=== PATIENT | male | born 1990 | race Caucasian/White ===

== ENCOUNTER 2017-01-11 08:01 | Day surgery (SDC) | payer BC ==
[~2017-01-11 08:01] MED LIST: Bupivacaine 0.5%/EPINEPHrine 1:200,000 30 ML SDV ONE; Dexamethasone 4 MG/ML SDV ONE; EPINEPHrine 1:10,000 1 MG/10 ML Syringe ONE; Ketorolac 30 MG/ML SDV ONE; Lactated Ringers 1,000 ML IV SCH; Lactated Ringers 1,000 ML ONE; Midazolam 1 MG/ML 2 ML SDV ONE; Propofol 200 MG/20 ML SDV ONE; Sodium Chloride 0.9% 5 ML Syringe FLUSH PRN; Water For Injection,Bacteriostatic 30 ML MDV ONE; ceFAZolin 1 GM Vial ONE; fentaNYL 250 MCG/5 ML SDV ONE
[2017-01-11] MEDS ORDERED: Ondansetron 4 MG/2 ML SDV ONE (09:06)
[2017-01-11] MEDS ORDERED: fentaNYL 250 MCG/5 ML SDV ONE (09:06)
[2017-01-11] MEDS ORDERED: Propofol 200 MG/20 ML SDV ONE (09:06)
[2017-01-11] MEDS ORDERED: Glycopyrrolate 0.2 MG/ML 5 ML MDV ONE (09:06)
[2017-01-11] MEDS ORDERED: Dexamethasone 4 MG/ML SDV ONE (09:06)
[2017-01-11] MEDS ORDERED: Succinylcholine 200 MG/10 ML MDV ONE (09:06)
[2017-01-11] MEDS ORDERED: Midazolam 1 MG/ML 2 ML SDV ONE (09:06)
[2017-01-11] MEDS ORDERED: Rocuronium 50 MG/5 ML Vial ONE (09:06)
[2017-01-11] MEDS ORDERED: ceFAZolin 1 GM Vial ONE ×2 (09:06→09:58)
[2017-01-11] MEDS ORDERED: fentaNYL 100 MCG/2 ML SDV ONE ×3 (09:06→11:39)
[2017-01-11] MEDS ORDERED: Neostigmine Methylsulfate 10 MG/10 ML MDV ONE (09:06)
[2017-01-11] MEDS ORDERED: Bupivacaine 0.5%/EPINEPHrine 1:200,000 30 ML SDV INFILT ONE ×2 (09:57)
[2017-01-11] MEDS ORDERED: Water For Injection, Sterile 20 ML SDV ONE (09:59)
[2017-01-11] MEDS ORDERED: EPINEPHrine 1:10,000 1 MG/10 ML Syringe ONE (10:00)
--- NOTE | 2017-01-11 11:58 | PCM.OPNOTE ---
[id number] cholecystectomy Findings: a hugely distended gallbladder was seen. The gallbladder contains thick pus and also had a stone that was treated. This did not show up on the ultrasound preoperatively. Pre Op Diagnosis: Chronic cholecystitis, sludge within the gallbladder, Post-Op Diagnosis: As above. Stone present within the gallbladder. Gallbladder filled with creamy yellow material. Empyema with thickened, adherent wall. Primary Surgeon: Jett Payton Surgical Drain/Tube Type: Jason Mayorga Round Drain Complications: None Condition: Good Free Text/Narrative:: INFORMED CONSENT: This patient is here today because of chronic cholecystitis and sludge in his gall bladder. . The operative procedure is laparoscopic cholecystectomy. The operative procedure and risks were discussed including all possible complications including infection, pain, bleeding, bile duct injury, internal organ injury, conversion to open procedure, reoperation, PE, . Anesthetic complications were handled by [employer]. The patient understands well and wishes to proceed. OPERATION PERFORMED: Laparoscopic cholecystectomy. Drainage of empyema. Removal of gall bladder stone. PROCEDURE: The patient was kept in the supine position and a satisfactory general anesthetic was administered via endotracheal tube. The abdomen was thoroughly prepped and draped in the usual fashion. The supraumbilical fold was infiltrated with 1 mL of Marcaine 0.5% and a curvilinear incision was made. The incision was deepened through the subcutaneous tissue until we came down upon the fascial layer. We then held the fascial layer with two Prosper clamps and then introduced a Verre's needle directly into the abdominal cavity. The position of the needle was ascertained by the aspiration of a small quantity of air, free flow of saline, negative aspiration of blood. We then instilled CO2 gas into the abdominal cavity and developed an abdominal pressure of approximately 15 mm/Hg. At this point we removed the Verre's needle and reintroduced it over a sheath. This was followed by a 5/12.5 trocar and a camera. Inspection revealed a chronically inflamed gallbladder with adherent omental adhesions. The omental pad was quite thick. The rest of the abdominal contents were normal to visualization. Two 5 mm trocars were placed in the right hypochondriac region, one in the right midclavicular and the second on the anterior clavicle line and a third 11.5 trocar was inserted in the subxiphoid position under direct vision. The patient was then kept in the reverse Trendelenburg position with a slight tilt to the left side. The two ratchets were placed one on the fundus and one at the neck of the gallbladder. The adherent omentum was gently and gradually dissected off the gallbladder. Dissection was begun at the neck of the gallbladder and the fat in this area was quite immense. We carefully dissected out the cystic artery and cystic duct separately and encircled both structures at approximately 1 to 1-1/2 cm. The critical view was [place] was clearly seen. We ligated each structure separately using endo clips. When ligating the cystic duct we made sure not to encroach upon the common duct in any way. We then used a hook cautery and gently dissected the gallbladder.The gallbladder was intensely adherent to the liver in a intrahepatic position. It was not possible to remove the posterior wall without risking severe hemorrhage or entry into the liver.. A strip of the posterior wall was therefore left and the anterior wall was completely removed. The remaining part of the gallbladder wall was cauterized. Extensive yellow pussy material was suctioned and a stone were retrieved.The gallbladder fossa and the remaining posterior wall of the gb were gently cauterized for additional hemostasis. The gallbladder was retrieved through the umbilical port. The yuliet hepatis was thoroughly irrigated with normal saline, most of which was aspirated out. A round Jason-Mayorga drain was advanced through the lateral port and left in the right upper quadrant, adjacent to the gallbladder fossa. The abdomen was then slowly deflated and prior to removal of the last trocar we completely deflated the abdomen. The trocar sites were washed with Betadine solution and the fascial layer was closed with 0 Polysorb and the skin was closed using 4.0 Polysorb in a subcuticular fashion. We then instilled approximately 20 mL of Marcaine 0.5% with epinephrine between the four sites. Sterile pressure dressings were applied. The patient tolerated the procedure well. There were no operative complications. Sponge, needle, and instrument count were correct.
[2017-01-11] MEDS ORDERED: metroNIDAZOLE/Normal Saline 100 ML IV ONE (12:30)
[2017-01-11] MEDS ORDERED: fentaNYL 100 MCG/2 ML SDV IVPUSH PRN (12:40)
[2017-01-11 15:56] VITALS: BP 154/84
== END 2017-01-11 16:55 | disposition home or self-care (01) ==
LOC: KA.SDS 08:01
PROVIDERS: ATTEND Family Medicine
DX: K80.10 Calculus of gallbladder with chronic cholecystitis without obstruction (principal); Z79.899 Other long term (current) drug therapy
CPT/HCPCS: 36415; 47562; 80076; J0171; J0330; J0690; J1100; J2250; J2405; J2704; J2710; J3010; J7120; J3490